=== PATIENT | male | born 1980 | race Two or more races ===

== ENCOUNTER → 2023-01-17 | Outpatient (CLI) | payer MEDICAID | END | disposition home or self-care (01) | LOC: LAB 09:47 | PROVIDERS: ATTEND Podiatrist | DX: E11.621 Type 2 diabetes mellitus with foot ulcer (principal) | CPT/HCPCS: 36415; 82040; 83036 ==

== ENCOUNTER 2023-06-26 07:47 | Inpatient (IN) | payer OTHER, MEDICAID ==
[~2023-06-26] VITALS: Ht 198.1 cm; Wt 134.4 kg
[2023-06-26 08:29] LABS: Basophils # (auto) 0.1 10 ^3/uL (0-0.2); Basophils % (auto) 1.3 % (0.0-2.0); Eosinophils # (auto) 0.2 10 ^3/uL (0-0.8); Eosinophils % (auto) 2.7 % (0.0-7.0); Hematocrit 48.8 % (41.0-53.0); Hemoglobin 16.3 g/dL (13.5-17.5); Mean Corpuscular Hemoglobin 29.6 pg (28.0-32.0); Mean Corpuscular Hgb Conc. 33.4 g/dL (32.0-36.0); Mean Corpuscular Volume 88.4 fL (80.0-100.0); Monocytes # (auto) 0.5 10 ^3/uL (0-1.3); Monocytes % (auto) 7.1 % (0.0-12.0); Neutrophils # (auto) 4.8 10 ^3/uL (1.6-8.6); Neutrophils % (auto) 62.9 % (37.0-80.0); Nucleated Red Blood Cells % 0.2 %; Red Blood Cells 5.52 10^6/uL (4.5-5.90); Red Cell Distribution Width 13.1 % (11.8-14.3); White Blood Cell 7.6 10^3/uL (4.4-10.8)
[2023-06-26 08:47] LABS: Alanine Aminotransferase 67 U/L (7-40); Albumin 4.3 g/dL (3.2-4.8); Alkaline Phosphatase 84 U/L (46-116); Anion Gap 6 (5-15); Aspartate Aminotransferase 38 U/L (13-40); Blood Urea Nitrogen 8 mg/dL (9-23); Calcium 9.1 mg/dL (8.5-10.1); Carbon Dioxide 25 mmol/L (20-30); Chloride 105 mmol/L (98-107); Glucose 305 mg/dL (74-106); Potassium 4.2 mmol/L (3.5-5.1); Sodium 136 mmol/L (136-145)
[2023-06-26 08:48] LABS: Bilirubin, Total 0.6 mg/dL (0.2-1.0)
[2023-06-26] MEDS ORDERED: PIPERACILLIN-TAZO 4.5GM 100 ML IV ONE (09:00)
[2023-06-26] MEDS ORDERED: SODIUM CHLORIDE 0.9% 1,000 ML IV ONE (09:00)
[2023-06-26] MEDS ORDERED: VANCOMYCIN 1GM/250ML 250 ML IV ONE (09:00)
[2023-06-26] MEDS ORDERED: HYDROcodone-ACET 10/325MG TAB PO ONE (09:15)
[2023-06-26 10:05] LABS: INR 0.99 (0.9-1.15); Prothrombin Time 10.4 sec (9.3-11.8)
[2023-06-26] MEDS ORDERED: InsuLIN REG 1unit/0.01ml Soln (100units/ml) IV ONE (10:15)
[2023-06-26] MEDS ORDERED: DOCUSATE SOD 100 MG CAP PO PRN (12:30)
[2023-06-26] MEDS ORDERED: DEXTROSE (50%) 50ML SYRG IV PRN (12:30)
[2023-06-26] MEDS ORDERED: VANCOMYCIN PER PHARMACY 0 MG IV SCH (12:30)
[2023-06-26] MEDS ORDERED: ONDANSETRON HCL 4 MG/2 ML VIAL IV PRN (12:30)
[2023-06-26] MEDS: SODIUM CHLORIDE 0.9% 1,000 ML IV SCH (13:47)
[2023-06-26 16:15] LABS: Base Excess 0.4 mmol/L (-2.0-2.0)
[2023-06-26] MEDS: InsuLIN REG 1unit/0.01ml Soln (100units/ml) SC SCH ×2 (17:00→22:58)
[2023-06-26] MEDS ORDERED: PIPERACILLIN-TAZOB 3.375GM 100 ML IV SCH (18:00)
[2023-06-26] MEDS: ACCU-CHEK COMFORT CURVE STRIP VI SCH ×2 (19:27→23:01)
[2023-06-26] MEDS: VANCOMYCIN 1GM/250ML 250 ML IV SCH ×2 (19:28→23:02)
[2023-06-26 19:30] VITALS: PULSE 80; O2SAT 96
[2023-06-26 20:05] VITALS: PULSE 80; O2SAT 96
[2023-06-26] MEDS ORDERED: LORazepam 2MG/ML-1ML VIAL IV PRN ×2 (21:00)
[2023-06-26] MEDS ORDERED: LIDOCAINE 1% (LOCAL ANESTH.) PF 5ml SDV ID ONE (21:15)
[2023-06-26 21:57] LABS: Folate (Folic Acid) > 24.00 ng/mL (>5.38)
[2023-06-26] MEDS ORDERED: IBUP-1455 PO (22:00)
[2023-06-26] MEDS ORDERED: DAKI0.12 TOP (22:00)
[2023-06-26 22:01] VITALS: PULSE 96; RESP 18; O2SAT 95
[2023-06-26 22:02] VITALS: BP 168/111; PULSE 96; RESP 18; TEMP 98.2; O2SAT 95
[2023-06-26] MEDS: MORPHINE SULFATE INJ 2 MG/ml SYRG IV PRN (23:00)
[2023-06-26] MEDS: SODIUM CHLOR 0.9% PF (SALINE LOCK) 10ML VIAL/SYR IV SCH (23:01)
[2023-06-27] MEDS: PIPERACILLIN-TAZOB 3.375GM 100 ML IV SCH ×4 (03:18→22:11)
[2023-06-27] MEDS: SODIUM CHLORIDE 0.9% 1,000 ML IV SCH ×3 (05:10→21:50)
[2023-06-27] MEDS: VANCOMYCIN 1GM/250ML 250 ML IV SCH ×3 (05:21→18:09)
[2023-06-27 05:35] LABS: Basophils # (auto) 0.1 10 ^3/uL (0-0.2); Basophils % (auto) 1.1 % (0.0-2.0); Eosinophils # (auto) 0.2 10 ^3/uL (0-0.8); Hematocrit 44.4 % (41.0-53.0); Lymphocytes # (auto) 1.2 10 ^3/uL (0.4-5.4); Lymphocytes % (auto) 19.7 % (10.0-50.0); Mean Corpuscular Hemoglobin 29.9 pg (28.0-32.0); Mean Corpuscular Hgb Conc. 33.8 g/dL (32.0-36.0); Mean Corpuscular Volume 88.6 fL (80.0-100.0); Monocytes # (auto) 0.4 10 ^3/uL (0-1.3); Monocytes % (auto) 6.8 % (0.0-12.0); Neutrophils # (auto) 4.4 10 ^3/uL (1.6-8.6); Neutrophils % (auto) 69.4 % (37.0-80.0); Red Blood Cells 5.01 10^6/uL (4.5-5.90); White Blood Cell 6.3 10^3/uL (4.4-10.8)
[2023-06-27 05:53] LABS: Alanine Aminotransferase 56 U/L (7-40); Albumin 3.6 g/dL (3.2-4.8); Alkaline Phosphatase 70 U/L (46-116); Anion Gap 6 (5-15); Aspartate Aminotransferase 45 U/L (13-40); BUN/Creatinine Ratio 7.7 (10.0-20.0); Blood Urea Nitrogen 6 mg/dL (9-23); Calcium 8.6 mg/dL (8.5-10.1); Carbon Dioxide 24 mmol/L (20-30); Chloride 106 mmol/L (98-107); Cholesterol 104 mg/dL (< 200); Glucose 223 mg/dL (74-106); Potassium 3.7 mmol/L (3.5-5.1); Sodium 136 mmol/L (136-145); Triglycerides 74 mg/dL (< 150)
[2023-06-27 05:54] LABS: LDL Cholesterol 69 mg/dL (< 100)
[2023-06-27 05:55] LABS: Bilirubin, Total 0.8 mg/dL (0.2-1.0); HDL Cholesterol 24 mg/dL (40-59); Total Protein 6.8 g/dL (5.7-8.2)
[2023-06-27] MEDS: InsuLIN REG 1unit/0.01ml Soln (100units/ml) SC SCH ×4 (06:29→21:56)
[2023-06-27] MEDS: ACCU-CHEK COMFORT CURVE STRIP VI SCH ×4 (06:30→21:52)
[2023-06-27 08:00] VITALS: PULSE 89; RESP 19; O2SAT 95
[2023-06-27 08:30] VITALS: BP 137/95; PULSE 89; RESP 19; TEMP 98.3; O2SAT 95
[2023-06-27] MEDS: LOSARTAN POTASSIUM 50 MG TAB PO SCH (08:56)
[2023-06-27] MEDS: DULoxetine HCL 30 MG CAP PO SCH (08:56)
[2023-06-27] MEDS: SODIUM CHLOR 0.9% PF (SALINE LOCK) 10ML VIAL/SYR IV SCH ×2 (08:57→21:58)
[2023-06-27 16:41] VITALS: BP 156/80; PULSE 99; RESP 19; TEMP 98.3; O2SAT 93
[2023-06-27] MEDS: MORPHINE SULFATE INJ 2 MG/ml SYRG IV PRN (18:56)
[2023-06-27 20:00] VITALS: RESP 18
[2023-06-27 21:57] VITALS: BP 132/86; PULSE 94; RESP 17; TEMP 98.4; O2SAT 94
[2023-06-28] MEDS: VANCOMYCIN 1GM/250ML 250 ML IV SCH ×3 (00:10→11:47)
[2023-06-28] MEDS: PIPERACILLIN-TAZOB 3.375GM 100 ML IV SCH ×2 (04:18→08:41)
[2023-06-28 05:00] VITALS: BP 121/87; PULSE 92; RESP 20; TEMP 98.1; O2SAT 93
[2023-06-28] MEDS: SODIUM CHLORIDE 0.9% 1,000 ML IV SCH (06:10)
[2023-06-28] MEDS: ACCU-CHEK COMFORT CURVE STRIP VI SCH ×2 (06:23→11:29)
[2023-06-28] MEDS: InsuLIN REG 1unit/0.01ml Soln (100units/ml) SC SCH ×2 (06:25→11:33)
[2023-06-28 07:30] VITALS: BP 137/95; TEMP 36.7
[2023-06-28 08:00] VITALS: BP 125/91; PULSE 91; RESP 18; TEMP 97.5; O2SAT 94
[2023-06-28] MEDS: SODIUM CHLOR 0.9% PF (SALINE LOCK) 10ML VIAL/SYR IV SCH (08:53)
[2023-06-28] MEDS: DULoxetine HCL 30 MG CAP PO SCH (08:55)
[2023-06-28] MEDS: LOSARTAN POTASSIUM 50 MG TAB PO SCH (08:56)
[2023-06-28] MEDS ORDERED: DAKINS QUARTER STR 0.125% (NaHypochlorite) 473 ML TOPICAL SOL TOP SCH (10:00)
[2023-06-28 12:55] VITALS: BP 127/93; PULSE 87; RESP 18; TEMP 98.2; O2SAT 93
== END 2023-06-28 15:08 | disposition left against medical advice (07) | DRG 638 ==
LOC: ER 07:47 → OVERFLOW 12:41 → WEST WING 22:08
PROVIDERS: ADMIT Nurse Practitioner Family; ATTEND Family Medicine
PROC: 02HV33Z Insertion of Infusion Device into Superior Vena Cava, Percutaneous Approach (ICD-10-PCS; principal; 2023-06-26)
PROC: B548ZZA Ultrasonography of Superior Vena Cava, Guidance (ICD-10-PCS; 2023-06-26)
DX: E11.69 Type 2 diabetes mellitus with other specified complication (principal); M86.172 Other acute osteomyelitis, left ankle and foot; E11.621 Type 2 diabetes mellitus with foot ulcer; E11.21 Type 2 diabetes mellitus with diabetic nephropathy; E11.42 Type 2 diabetes mellitus with diabetic polyneuropathy; E78.00 Pure hypercholesterolemia, unspecified; G54.0 Brachial plexus disorders; I10 Essential (primary) hypertension; B95.2 Enterococcus as the cause of diseases classified elsewhere; L97.519 Non-pressure chronic ulcer of other part of right foot with unspecified severity; L03.032 Cellulitis of left toe; L97.529 Non-pressure chronic ulcer of other part of left foot with unspecified severity; R09.02 Hypoxemia; Z53.29 Procedure and treatment not carried out because of patient's decision for other reasons; Z91.148 Patient's other noncompliance with medication regimen for other reason; Z90.49 Acquired absence of other specified parts of digestive tract; E11.65 Type 2 diabetes mellitus with hyperglycemia; E66.9 Obesity, unspecified; Z68.34 Body mass index [BMI] 34.0-34.9, adult
CPT/HCPCS: 36415; 36569; 36600; 70551; 71045; 73700; 80053; 80061; 80202; 82010; 82607; 82746; 82805; 82962; 83036; 83605; 84443; 85025; 85610; 87040; 87077; 87186; 87205; 93926; 93971; G0378; J1815; J2543

== ENCOUNTER → 2023-07-03 | Outpatient (CLI) | payer OTHER, MEDICAID ==
[~2023-07-03] MED LIST: DAKI0.12 TOP; IBUP-1455 PO
[2023-07-03 09:54] LABS: Basophils # (auto) 0.1 10 ^3/uL (0-0.2); Basophils % (auto) 1.2 % (0.0-2.0); Eosinophils # (auto) 0.3 10 ^3/uL (0-0.8); Eosinophils % (auto) 4.7 % (0.0-7.0); Hemoglobin 15.2 g/dL (13.5-17.5); Lymphocytes # (auto) 1.7 10 ^3/uL (0.4-5.4); Mean Corpuscular Volume 87.9 fL (80.0-100.0); Monocytes # (auto) 0.5 10 ^3/uL (0-1.3); Monocytes % (auto) 8.2 % (0.0-12.0); Neutrophils # (auto) 3.5 10 ^3/uL (1.6-8.6); Neutrophils % (auto) 57.9 % (37.0-80.0); Red Blood Cells 5.23 10^6/uL (4.5-5.90)
[2023-07-03 10:09] LABS: INR 1.01 (0.9-1.15); Partial Thromboplastin Time 29.3 SEC (24.5-34.5); Prothrombin Time 10.6 sec (9.3-11.8)
== END | disposition home or self-care (01) ==
LOC: LAB 09:43
PROVIDERS: ATTEND Podiatrist
DX: E11.621 Type 2 diabetes mellitus with foot ulcer (principal); D68.9 Coagulation defect, unspecified
CPT/HCPCS: 36415; 85025; 85610; 85730

== ENCOUNTER → 2023-07-04 | Outpatient (CLI) | payer OTHER, MEDICAID ==
[~2023-07-04] MED LIST changes: +LIDOCAINE 1% (LOCAL ANESTH.) PF 5ml SDV ID ONE; +SODIUM CHLOR 0.9% PF (SALINE LOCK) 10ML VIAL/SYR IV SCH
== END | disposition home or self-care (01) ==
LOC: XYW 14:56
PROVIDERS: ATTEND Podiatrist
DX: S91.102A Unspecified open wound of left great toe without damage to nail, initial encounter (principal); X58.XXXA Exposure to other specified factors, initial encounter; Y93.89 Activity, other specified; Y92.89 Other specified places as the place of occurrence of the external cause; Y99.8 Other external cause status
CPT/HCPCS: 36569; 71045; C1751; J7050

== ENCOUNTER 2024-05-19 14:28 | Inpatient (IN) | payer OTHER, MEDICAID ==
[~2024-05-19] VITALS: Ht 198.1 cm; Wt 123.5 kg
[~2024-05-19 14:28] MED LIST changes: -LIDOCAINE 1% (LOCAL ANESTH.) PF 5ml SDV ID ONE; -SODIUM CHLOR 0.9% PF (SALINE LOCK) 10ML VIAL/SYR IV SCH
[2024-05-19 15:27] LABS: Basophils # (auto) 0.1 10 ^3/uL (0-0.2); Basophils % (auto) 0.3 % (0.0-2.0); Eosinophils # (auto) 0 10 ^3/uL (0-0.8); Hematocrit 47.4 % (41.0-53.0); Hemoglobin 16.4 g/dL (13.5-17.5); Lymphocytes # (auto) 1.1 10 ^3/uL (0.4-5.4); Lymphocytes % (auto) 6.4 % (10.0-50.0); Mean Corpuscular Hemoglobin 31.2 pg (28.0-32.0); Mean Corpuscular Hgb Conc. 34.6 g/dL (32.0-36.0); Mean Corpuscular Volume 90.3 fL (80.0-100.0); Monocytes # (auto) 1.1 10 ^3/uL (0-1.3); Monocytes % (auto) 6.4 % (0.0-12.0); Neutrophils # (auto) 15.5 10 ^3/uL (1.6-8.6); Neutrophils % (auto) 86.9 % (37.0-80.0); Platelet Count (auto) 368 10^3/uL (140-450); Red Blood Cells 5.25 10^6/uL (4.5-5.90); Red Cell Distribution Width 13.1 % (11.8-14.3); White Blood Cell 17.8 10^3/uL (4.4-10.8)
[2024-05-19 15:48] LABS: Lactic Acid w/Reflex 3.3 mmol/L (0.4-2.0)
[2024-05-19 16:03] LABS: Alanine Aminotransferase 14 U/L (7-40); Alkaline Phosphatase 89 U/L (46-116); Anion Gap 12 (5-15); Aspartate Aminotransferase 18 U/L (13-40); BUN/Creatinine Ratio 7.5 (10.0-20.0); Blood Urea Nitrogen 8 mg/dL (9-23); Calcium 10.4 mg/dL (8.7-10.4); Carbon Dioxide 19 mmol/L (20-31); Chloride 102 mmol/L (98-107); Glucose 186 mg/dL (74-106); Potassium 3.6 mmol/L (3.5-5.1); Sodium 133 mmol/L (136-145)
[2024-05-19 16:04] LABS: Albumin 4.9 g/dL (3.2-4.8); Bilirubin, Total 1.4 mg/dL (0.2-1.0); Total Protein 9.4 g/dL (5.7-8.2)
[2024-05-19] MEDS: SODIUM CHLORIDE 0.9% 2,750 ML IV ONE (16:15)
[2024-05-19] MEDS ORDERED: VANCOMYCIN PER PHARMACY 0 MG IV SCH (17:00)
[2024-05-19] MEDS: LACTATED RINGER'S 2,750 ML IV ONE (20:44)
[2024-05-19] MEDS: ONDANSETRON HCL 4 MG/2 ML VIAL IV ONE (20:53)
[2024-05-19] MEDS: MORPHINE SULFATE 4 MG/ML SYR/VIAL IV ONE (20:54)
[2024-05-19] MEDS: VANCOMYCIN 1GM/200ML 200 ML IV SCH (21:01)
[2024-05-19] MEDS ORDERED: VANCOMYCIN 1.75GM/350ML 350 ML IV SCH (21:30)
[2024-05-19 22:00] VITALS: PULSE 128; RESP 20; O2SAT 98
[2024-05-19] MEDS ORDERED: VANCOMYCIN 1GM/200ML 200 ML IV SCH (22:00)
[2024-05-19] MEDS: VANCOMYCIN 1GM/200ML 200 ML IV ONE (22:14)
[2024-05-19] MEDS ORDERED: DEXTROSE (50%) 50ML SYRG IV PRN (22:30)
[2024-05-19] MEDS: PIPERACILLIN-TAZO 4.5GM 100 ML IV SCH (23:21)
[2024-05-20] VITALS (7 sets, daily range): BP systolic 124–149; BP diastolic 72–92; PULSE 104–126; RESP 13–20; TEMP 98.8–102.8; O2SAT 93–98
[2024-05-20] MEDS: ACCU-CHEK COMFORT CURVE STRIP VI SCH ×2 (00:27→06:00)
[2024-05-20 04:07] LABS: Anion Gap 5 (5-15); Carbon Dioxide 25 mmol/L (20-31); Chloride 104 mmol/L (98-107); Potassium 4.3 mmol/L (3.5-5.1); Sodium 134 mmol/L (136-145)
[2024-05-20 04:08] LABS: Calcium 9.2 mg/dL (8.7-10.4)
[2024-05-20 04:13] LABS: Blood Urea Nitrogen 9 mg/dL (9-23); Glucose 162 mg/dL (74-106)
[2024-05-20] MEDS ORDERED: DEXTROSE (50%) 50ML SYRG IV PRN (04:30)
[2024-05-20] MEDS: InsuLIN REG 1unit/0.01ml Soln (100units/ml) SC SCH ×2 (06:00)
[2024-05-20] MEDS: MORPHINE SULFATE INJ 2 MG/ml SYRG IV PRN (06:23)
[2024-05-20 08:41] LABS: Basophils # (auto) 0.1 10 ^3/uL (0-0.2); Basophils % (auto) 0.3 % (0.0-2.0); Eosinophils # (auto) 0 10 ^3/uL (0-0.8); Eosinophils % (auto) 0.1 % (0.0-7.0); Hematocrit 40.5 % (41.0-53.0); Hemoglobin 14.1 g/dL (13.5-17.5); Lymphocytes # (auto) 1.2 10 ^3/uL (0.4-5.4); Lymphocytes % (auto) 7.1 % (10.0-50.0); Mean Corpuscular Hemoglobin 31.7 pg (28.0-32.0); Mean Corpuscular Volume 90.6 fL (80.0-100.0); Monocytes # (auto) 1.6 10 ^3/uL (0-1.3); Neutrophils # (auto) 13.5 10 ^3/uL (1.6-8.6); Neutrophils % (auto) 82.5 % (37.0-80.0); Platelet Count (auto) 328 10^3/uL (140-450); Red Blood Cells 4.47 10^6/uL (4.5-5.90); Red Cell Distribution Width 13.2 % (11.8-14.3); White Blood Cell 16.4 10^3/uL (4.4-10.8)
[2024-05-20] MEDS: CEFEPIME 1GM/ 50ML 50 ML IV ONE (08:54)
[2024-05-20 09:35] LABS: Erythrocyte Sedimentation Rate 49 mm/hr (0-20)
[2024-05-20 09:45] LABS: INR 1.21 (0.9-1.15); Partial Thromboplastin Time 29.5 SEC (24.5-34.5); Prothrombin Time 12.6 sec (9.3-11.8)
[2024-05-20] MEDS: VANCOMYCIN 1.75GM/350ML 350 ML IV SCH (10:40)
[2024-05-20] MEDS: SODIUM CHLORIDE 0.9% 1,000 ML IV SCH (10:53)
[2024-05-20] MEDS: INSULIN LANTUS (GLARGINE) 1 /0.01ml (100units/ml) SC SCH (11:06)
[2024-05-20] MEDS ORDERED: KETAMINE 50mg/ML 1ml syringe ONE (11:48)
[2024-05-20] MEDS ORDERED: fentaNYL CITRATE 100 MCG/2 ML VL ONE (11:48)
[2024-05-20] MEDS ORDERED: SODIUM CHLORIDE LOCK 10 ML ONE (11:49)
[2024-05-20] MEDS ORDERED: PROPOFOL 10 MG/ML 20 ML IV ONE (11:49)
[2024-05-20] MEDS ORDERED: ONDANSETRON HCL 4 MG/2 ML VIAL ONE (11:49)
[2024-05-20] MEDS ORDERED: MIDAZOLAM HCL 2MG/2ML 2ml VIAL (1mg/ml) ONE ×2 (11:49→12:48)
[2024-05-20] MEDS ORDERED: LIDOCAINE 1% INJ PF 5ML AMP ONE (11:49)
[2024-05-20] MEDS ORDERED: MORPHINE SULFATE INJ 2 MG/ml SYRG IV PRN (12:15)
[2024-05-20] MEDS ORDERED: HYDROmorphone HCL 2 MG/ML VL/or syr IV PRN ×2 (12:15)
[2024-05-20] MEDS: BUPIVACAINE 0.5% MPF INJ 30ML SDV IJ ONE (12:39)
[2024-05-20] MEDS: LABETALOL HCL 20 MG/4 ML VL IV ONE (15:20)
[2024-05-20] MEDS ORDERED: LABETALOL HCL 20 MG/4 ML VL IV ONE (15:21)
[2024-05-20] MEDS: KETOROLAC TROMETH 30 MG/ML 1ML VIAL IV ONE (16:33)
[2024-05-20] MEDS: METOCLOPRAMIDE HCL 5MG/ml INJ 2ml VIAL IV ONE (16:33)
[2024-05-20] MEDS: CEFEPIME 1GM/ 50ML 50 ML IV SCH (18:17)
[2024-05-21 01:00] VITALS: BP 106/59; PULSE 105; RESP 19; TEMP 99.5; O2SAT 96
[2024-05-21 05:00] VITALS: BP 118/75; PULSE 100; RESP 19; TEMP 98.9; O2SAT 97
[2024-05-21 06:51] LABS: Urine Bacteria FEW /hpf (None Seen); Urine Blood Negative /uL (Negative); Urine Clarity Clear (Clear); Urine Color Yellow (Yellow); Urine Mucus FEW (None Seen); Urine Protein, UAD TRACE (Negative); Urine Specific Gravity 1.029 (1.001-1.035); Urine Urobilinogen 4 mg/dL (Negative); Urine WBC 1 /hpf (0 - 3); Urine pH 5.5 (5.0-9.0)
[2024-05-21 06:55] LABS: Amphetamine Screen, Urine Neg (NEGATIVE); Barbiturate Scree,Urine Neg (NEGATIVE); Benzodiazephine Screen, Urine Pos (NEGATIVE); Cocaine Screen, Urine Neg (NEGATIVE)
[2024-05-21 06:56] LABS: Cannabinoid Screen, Urine Pos (NEGATIVE); Opiate Scree,Urine Neg (NEGATIVE); Phencyclidine Screen, Urine Neg (NEGATIVE)
[2024-05-21 08:00] VITALS: PULSE 88; RESP 17; O2SAT 96
[2024-05-21 08:44] VITALS: BP 122/86; PULSE 88; RESP 17; TEMP 98.2; O2SAT 96
[2024-05-21 08:53] LABS: Basophils # (auto) 0.1 10 ^3/uL (0-0.2); Basophils % (auto) 0.4 % (0.0-2.0); Eosinophils # (auto) 0.1 10 ^3/uL (0-0.8); Eosinophils % (auto) 0.5 % (0.0-7.0); Hemoglobin 13.6 g/dL (13.5-17.5); Lymphocytes % (auto) 6.8 % (10.0-50.0); Mean Corpuscular Hemoglobin 31.5 pg (28.0-32.0); Mean Corpuscular Hgb Conc. 34.9 g/dL (32.0-36.0); Mean Corpuscular Volume 90.4 fL (80.0-100.0); Monocytes # (auto) 1.3 10 ^3/uL (0-1.3); Monocytes % (auto) 8.7 % (0.0-12.0); Neutrophils # (auto) 12.2 10 ^3/uL (1.6-8.6); Neutrophils % (auto) 83.6 % (37.0-80.0); Platelet Count (auto) 292 10^3/uL (140-450); Red Blood Cells 4.32 10^6/uL (4.5-5.90); Red Cell Distribution Width 13.1 % (11.8-14.3); White Blood Cell 14.6 10^3/uL (4.4-10.8)
[2024-05-21 08:54] LABS: Anion Gap 5 (5-15); Carbon Dioxide 24 mmol/L (20-31); Chloride 106 mmol/L (98-107); Potassium 3.7 mmol/L (3.5-5.1); Sodium 135 mmol/L (136-145)
[2024-05-21 08:56] LABS: Calcium 9.3 mg/dL (8.7-10.4)
[2024-05-21 09:00] LABS: BUN/Creatinine Ratio 11.5 (10.0-20.0); Blood Urea Nitrogen 9 mg/dL (9-23); Glucose 112 mg/dL (74-106)
[2024-05-21 13:00] VITALS: BP 123/83; PULSE 95; RESP 18; TEMP 98.1; O2SAT 98
== END 2024-05-21 17:00 | disposition left against medical advice (07) | DRG 872 ==
LOC: ER 14:38 → OVERFLOW 22:35 → WEST WING 05-20 15:54
PROVIDERS: ADMIT Internal Medicine; ATTEND Internal Medicine
PROC: 0Y9N0ZX Drainage of Left Foot, Open Approach, Diagnostic (ICD-10-PCS; principal; 2024-05-20 12:30)
DX: A41.9 Sepsis, unspecified organism (principal); L02.612 Cutaneous abscess of left foot; L03.116 Cellulitis of left lower limb; M86.8X7 Other osteomyelitis, ankle and foot; I10 Essential (primary) hypertension; F20.9 Schizophrenia, unspecified; E11.621 Type 2 diabetes mellitus with foot ulcer; F31.9 Bipolar disorder, unspecified; F17.210 Nicotine dependence, cigarettes, uncomplicated; Z53.29 Procedure and treatment not carried out because of patient's decision for other reasons; E11.69 Type 2 diabetes mellitus with other specified complication; Z90.49 Acquired absence of other specified parts of digestive tract; Z91.148 Patient's other noncompliance with medication regimen for other reason
CPT/HCPCS: 36415; 73700; 73718; 80048; 80053; 80202; 80307; 81001; 82306; 82607; 82962; 83036; 83605; 84443; 85025; 85610; 85652; 85730; 86141; 87040; 87070; 87075; 87076; 87081; 87205; 96365; 96375; G0378; J1815; J2250; J2405; J2543; J2704; J3490

== ENCOUNTER 2024-11-09 15:33 | Inpatient (IN) | payer OTHER, MEDICAID ==
[~2024-11-09] VITALS: Ht 198.1 cm; Wt 113.6 kg
--- NOTE | 2024-11-09 15:53 | ED.PDOC ---
Musculoskeletal HPI Comments 44-year-old male with past medical history pertinent for DM, bipolar, schizophrenia, presents to ED for left foot pain that has been ongoing for four days, associated with fever. Patient states that he has a diabetic foot wound and was advised by his funeral pre arrangement specialist Dr. Neri to come to the Ed to get admitted for surgery. Currently rates his pain as 10/10 in severity. He denies taking any medications for pain. No alleviating or aggravating factors. Chief Complaint: Wound Check Time Seen by MD: 15:36 Primary Care Provider: KNAPP Reviewed Notes: Nurses Notes, Medications, Allergies Allergies: Coded Allergies: NO KNOWN ALLERGIES (Unverified , 06/26/23) Home Meds Reported Medications Sodium Hypochlorite (Dakins Solution Quarter S) 0.125 % Xiomara, TOP BID 06/26/23 Ibuprofen Micronized (Ibuprofen) 800 Mg Tab, 1 TAB PO TID 06/26/23 Past Medical History PAST MEDICAL HISTORY: DM Surgical History: Cholecystectomy Family History Family History: Reviewed,noncontributory to illness Social History Smoker: Non-Smoker Alcohol: Denies ETOH Use Drugs: Denies Drug Use Lives In: Home Constitutional: reports: fever; denies: chills, diaphoresis, fatigue, malaise, sweats, weakness, others EENTM: denies: blurred vision, double vision, ear bleeding, ear discharge, ear drainage, ear pain, ear ringing, eye pain, eye redness, hearing loss, mouth pain, mouth swelling, nasal discharge, nose bleeding, nose congestion, nose pain, photophobia, tearing, throat pain, throat swelling, voice changes, others Respiratory: denies: cough, hemoptysis, orthopnea, SOB at rest, shortness of breath, SOB with excertion, stridor, wheezing, others Cardiovascular: denies: chest pain, dizzy spells, diaphoresis, Dyspnea on exertion, edema, irregular heart beat, left arm pain, lightheadedness, palpitations, PND, syncope, others Gastrointestinal: denies: abdomen distended, abdominal pain, blood streaked bowels, constipated, diarrhea, dysphagia, difficulty swallowing, hematemesis, melena, nausea, poor appetite, poor fluid intake, rectal bleeding, rectal pain, vomiting, others Genitourinary: denies: burning, dysuria, flank pain, frequency, hematuria, incontinence, penile discharge, penile sore, pain, testicle pain, testicle swelling, urgency, others Neurological: denies: dizziness, fainting, headache, left sided numbness, left sided weakness, numbness, paresthesia, pre-existing deficit, right sided numbness, right sided weakness, seizure, speech problems, tingling, tremors, weakness, others Musculoskeletal: reports: joint pain; denies: back pain, gout, joint swelling, muscle pain, muscle stiffness, neck pain, others Integumetry: denies: bruises, change in color, change in hair/nails, dryness, laceration, lesions, lumps, rash, wounds, others Allergic/Immunocompromised: denies: Difficulty Healing, Frequent Infections, Hives, Itching, others Hematologic/Lymphatic: denies: anemia, blood clots, easy bleeding, easy bruising, swollen glands, others Endocrine: denies: excessive hunger, excessive sweating, excessive thirst, excessive urination, flushing, intolerance to cold, intolerance to heat, unexplained weight gain, unexplained weight loss, others Psychiatric: denies: anxiety, bipolar disorder, depression, hopeless, panic disorder, schizophrenia, sleepless, suicidal, others All Other Systems: Reviewed and Negative Physical Exam General Appearance: Moderate Distress (Patient arrives in wheelchair, moderate distress due to pain.), Normal HEENT: Normal ENT Inspection, Pharynx Normal, TMs Normal Neck: Full Range of Motion, Non-Tender, Normal, Normal Inspection Respiratory: Chest Non-Tender, Lungs Clear, No Accessory Muscle Use, No Respiratory Distress, Normal Breath Sounds Cardiovascular: No Edema, No JVD, No Murmur, No Gallop, Normal Peripheral Pulses, Regular Rate/Rhythm Breast Exam: Deferred Gastrointestinal: No Organomegaly, Non Tender, No Pulsatile Mass, Normal Bowel Sounds, Soft Genitalia: Deferred Pelvic: Deferred Rectal: Deferred Extremities: No calf tenderness, Normal capillary refill, Normal range of motion, Tender (Left foot is wrapped and gauze. Tenderness to palpation to the entire foot. Tender to palpation to the ankle) Musculoskeletal : Apperance: Normal Neurologic: Alert, system validation engineer II-XII nml as Tested, No Motor Deficits, Normal Affect, Normal Mood, No Sensory Deficits Cerebellar Function: Normal Reflexes: Normal Skin: Dry, Normal Color, Warm Lymphatic: No Adenopathy Was a procedure done? Was a procedure done?: No Differential Diagnosis EXT Differential Diagnosis: Cellulitis, Fracture, Sprain, Neurovascular injury Other Differential Diagnosis Osteomyelitis, diabetic foot ulcer X-Ray, Labs, Meds, VS Vital Signs Date Time Temp Pulse Resp B/P (MAP) Pulse Ox O2 Delivery O2 Flow Rate FiO2 11/09/24 19:02 16 99 Room Air 11/09/24 19:00 98.0 93 16 109/68 (82) 99 98.0 11/09/24 18:21 96 17 114/69 (84) 100 11/09/24 18:20 96 17 114/69 11/09/24 17:43 119 18 112/75 11/09/24 17:33 99.8 119 18 112/75 (87) 97 99.8 11/09/24 17:28 99.8 11/09/24 16:38 18 98 Room Air* 0 21 11/09/24 16:34 100.1 11/09/24 16:22 126 17 96 Room Air 11/09/24 16:22 100.1 126 17 121/82 (95) 96 100.1 11/09/24 15:45 100.0 90 25 133/81 (98) 97 100.0 Lab Test 11/09/24 18:05 11/09/24 16:09 11/09/24 15:45 Range/Units Lactic Acid Level 1.3 2.5 *H 0.4-2.0 mmol/L White Blood Count 17.7 H 4.4-10.8 10^3/uL Red Blood Count 5.30 4.5-5.90 10^6/uL Hemoglobin 16.1 13.5-17.5 g/dL Hematocrit 48.4 41.0-53.0 % Mean Corpuscular Volume 91.4 80.0-100.0 fL Mean Corpuscular Hemoglobin 30.4 28.0-32.0 pg Mean Corpuscular Hemoglobin Concent 33.3 32.0-36.0 g/dL Red Cell Distribution Width 13.3 11.8-14.3 % Platelet Count 333 140-450 10^3/uL Mean Platelet Volume 7.6 6.9-10.8 fL Neutrophils (%) (Auto) 86.8 H 37.0-80.0 % Lymphocytes (%) (Auto) 6.7 L 10.0-50.0 % Monocytes (%) (Auto) 6.2 0.0-12.0 % Eosinophils (%) (Auto) 0.1 0.0-7.0 % Basophils (%) (Auto) 0.2 0.0-2.0 % Neutrophils # (Auto) 15.3 H 1.6-8.6 10 ^3/uL Lymphocytes # (Auto) 1.2 0.4-5.4 10 ^3/uL Monocytes # (Auto) 1.1 0-1.3 10 ^3/uL Eosinophils # (Auto) 0 0-0.8 10 ^3/uL Basophils # (Auto) 0 0-0.2 10 ^3/uL Nucleated Red Blood Cells 0.0 % Erythrocyte Sedimentation Rate 35 H 0-20 mm/hr Sodium Level 135 L 136-145 mmol/L Potassium Level 4.2 3.5-5.1 mmol/L Chloride Level 105 98-107 mmol/L Carbon Dioxide Level 16 L 20-31 mmol/L Anion Gap 14 5-15 Blood Urea Nitrogen 13 9-23 mg/dL Creatinine 1.14 0.700-1.30 mg/dL Glomerular Filtration Rate Calc 82 >90 mL/min BUN/Creatinine Ratio 11.4 10.0-20.0 Serum Glucose 128 H 74-106 mg/dL Calcium Level 10.3 8.7-10.4 mg/dL Total Bilirubin 1.4 H 0.2-1.0 mg/dL Aspartate Amino Transferase (AST) 30 13-40 U/L Alanine Aminotransferase (ALT) 19 7-40 U/L Alkaline Phosphatase 84 46-116 U/L C-Reactive Protein High Sensitivity 14.19 H <1.0 mg/dL Total Protein 8.4 H 5.7-8.2 g/dL Albumin 4.8 3.2-4.8 g/dL POC Glucose 142 H 70-106 mg/dl Current Medications Medications (Trade) Dose Ordered Sig/Quyen Route Start Time Stop Time Status Last Admin Ketorolac Tromethamine (Toradol Injection) 30 mg ONCE ONCE IV 11/09/24 15:45 11/09/24 15:46 DC 11/09/24 16:34 Acetaminophen (Tylenol Tablet) 650 mg ONCE ONCE PO 11/09/24 16:00 11/09/24 16:06 DC 11/09/24 16:34 Piperacillin Sod/ Tazobactam Sod 100 ml @ 100 mls/hr ONCE ONCE IV 11/09/24 16:45 11/09/24 17:44 DC 11/09/24 16:59 Sodium Chloride 2,750 ml @ 2,750 mls/hr ONCE ONCE IV 11/09/24 17:00 11/09/24 17:59 DC 11/09/24 17:29 Vancomycin HCl 250 ml @ 250 mls/hr Q1H IV 11/09/24 17:00 11/09/24 18:59 DC 11/09/24 18:37 Morphine Sulfate 4 mg ONCE ONCE IV 11/09/24 17:45 11/09/24 17:46 DC 11/09/24 17:43 Ondansetron HCl (Zofran) 4 mg ONCE ONCE IV 11/09/24 17:45 11/09/24 17:46 DC 11/09/24 17:42 X-Ray, Labs, Meds, VS Comment CT Left Foot Impression: Possible osteomyelitis of the 4th metatarsal head. Focal collections of air in the plantar soft tissues of the left foot indicative of an infectious etiology. MDM: Patient with history as above presented with left foot pain. History obtained from patient. Patient was nontoxic, stable, mildly febrile, in wheelchair, moderate distress. Exam as above. Labs reviewed. CBC showed leukocytosis of 17.7. CMP showed mild hyponatremia at 135. Lactic acid elevated at 2.5. Pending ESR and CRP.. Independently reviewed imaging. Left foot showed possible osteomyelitis of the 4th metatarsal head. There was also air in the plantar soft tissues, suggesting infection. Reviewed external records. All findings were discussed with the patient. Differential diagnosis considered. Overall presentation is consistent with sepsis due to diabetic foot wound/osteomyelitis. Low suspicion for acute fracture, dislocation, abscess. Patient was treated with Tylenol, Toradol with improvement in symptoms. Patient will be started on IV fluids and antibiotics for sepsis and osteomyelitis treatment. Podiatry consult has been placed. Patient will be admitted for further evaluation. Disposition: Admit This medical document was created using the [employer] system. Although this document has been carefully reviewed, there may still be some phonetic and typographical errors, which are due to imperfections of the software program, and do not reflect any compromise in the patient's medical care. Time of 1ST Reevaluation: 16:34 Reevaluation 1ST: Improved Patient Education/Counseling: Diagnosis, Treatment, Prognosis, Need For Follow Up Family Education/Counseling: No Family Present Departure 1 Departure Time of Disposition: 16:34 Impression: Primary Impression: Acute osteomyelitis of toe of left foot Additional Impressions: DM type 2 with diabetic foot ulcer Qualified Codes: E11.621 - Type 2 diabetes mellitus with foot ulcer; L97.509 - Non-pressure chronic ulcer of other part of unspecified foot with unspe cified severity Sepsis Qualified Codes: A41.9 - Sepsis, unspecified organism Disposition: 09 ADMITTED INPATIENT Condition: Fair Critical Care Note Critical Care Time?: No Stability Stability form required: No Heart Score Heart Score: Heart Score Response (Comments) Value History N/A 0 EKG N/A 0 Age N/A 0 Risk Factors N/A 0 Troponin N/A 0 Total 0 RACHANA LABOY [facility] Nov 09, 2024 15:53
[2024-11-09 16:25] LABS: Basophils # (auto) 0 10 ^3/uL (0-0.2); Basophils % (auto) 0.2 % (0.0-2.0); Eosinophils # (auto) 0 10 ^3/uL (0-0.8); Eosinophils % (auto) 0.1 % (0.0-7.0); Hematocrit 48.4 % (41.0-53.0); Hemoglobin 16.1 g/dL (13.5-17.5); Lymphocytes # (auto) 1.2 10 ^3/uL (0.4-5.4); Lymphocytes % (auto) 6.7 % (10.0-50.0); Mean Corpuscular Hemoglobin 30.4 pg (28.0-32.0); Mean Corpuscular Hgb Conc. 33.3 g/dL (32.0-36.0); Mean Corpuscular Volume 91.4 fL (80.0-100.0); Monocytes # (auto) 1.1 10 ^3/uL (0-1.3); Monocytes % (auto) 6.2 % (0.0-12.0); Neutrophils # (auto) 15.3 10 ^3/uL (1.6-8.6); Neutrophils % (auto) 86.8 % (37.0-80.0); Platelet Count (auto) 333 10^3/uL (140-450); Red Cell Distribution Width 13.3 % (11.8-14.3); White Blood Cell 17.7 10^3/uL (4.4-10.8)
--- NOTE | 2024-11-09 16:29 | DVH ---
EXAMINATION: CT CT L FOOT WO CONTRAST INDICATION: R/o osteomyelitis COMPARISON: MRI MRI L FOOT WO CONTRAST on DOS: 05/20/24, CT CT L FOOT WO CONTRAST on DOS: 05/19/24, CT CT L FOOT WO CONTRAST on DOS: 06/26/23 TECHNIQUE: CT of the left foot was performed without contrast. Volume transverse images were obtained reconstructed in multiple planes using bone and soft tissue algorithms. CONTRAST: None Radiation dose: Total exam DLP equals 238 M Gy per cm FINDINGS: There is focal osteopenia of the distal 4th metatarsal head with surrounding soft tissue swelling, ax ial images 45 through 48. Fracture not identified. Discrete cortical destructive changes not present . Findings suggestive of possible early osteomyelitis. MRI recommended for further assessment. There are small focal collections of air in the plantar surface of the mid foot, axial image 52, seri es 604 and sagittal image 64, series 602. Findings may be infectious in nature. A well-defined absce ss is not appreciated. Impression: Possible osteomyelitis of the 4th metatarsal head. Focal collections of air in the plantar soft tissues of the left foot indicative of an infectious kenny ology.
[2024-11-09] MEDS: KETOROLAC TROMETH 30 MG/ML 1ML VIAL IV ONE (16:34)
[2024-11-09] MEDS: ACETAMINOPHEN 325 MG TAB PO ONE (16:34)
[2024-11-09 16:38] VITALS: RESP 18; O2SAT 98
[2024-11-09 16:43] LABS: Alanine Aminotransferase 19 U/L (7-40); Albumin 4.8 g/dL (3.2-4.8); Alkaline Phosphatase 84 U/L (46-116); Anion Gap 14 (5-15); Aspartate Aminotransferase 30 U/L (13-40); BUN/Creatinine Ratio 11.4 (10.0-20.0); Blood Urea Nitrogen 13 mg/dL (9-23); Calcium 10.3 mg/dL (8.7-10.4); Chloride 105 mmol/L (98-107); Potassium 4.2 mmol/L (3.5-5.1)
[2024-11-09 16:45] LABS: Bilirubin, Total 1.4 mg/dL (0.2-1.0); Carbon Dioxide 16 mmol/L (20-31); Glucose 128 mg/dL (74-106); Sodium 135 mmol/L (136-145); Total Protein 8.4 g/dL (5.7-8.2)
[2024-11-09] MEDS ORDERED: VANCOMYCIN PER PHARMACY 0 MG IV SCH ×2 (16:45→19:45)
[2024-11-09 16:48] LABS: Lactic Acid w/Reflex 2.5 mmol/L (0.4-2.0)
[2024-11-09 16:55] LABS: CRP High Sensitivity 14.19 mg/dL (<1.0)
[2024-11-09] MEDS: PIPERACILLIN-TAZOB 3.375GM 100 ML IV ONE (16:59)
[2024-11-09 17:09] LABS: Erythrocyte Sedimentation Rate 35 mm/hr (0-20)
[2024-11-09] MEDS: SODIUM CHLORIDE 0.9% 2,750 ML IV ONE (17:29)
[2024-11-09] MEDS: MORPHINE SULFATE 4 MG/ML SYR/VIAL IV ONE ×2 (17:40→17:43)
[2024-11-09] MEDS: ONDANSETRON HCL 4 MG/2 ML VIAL IV ONE ×2 (17:40→17:42)
[2024-11-09] MEDS: VANCOMYCIN 1GM/250ML KIT 250 ML IV SCH (18:37)
[2024-11-09] MEDS ORDERED: ONDANSETRON HCL 4 MG/2 ML VIAL IV PRN (19:45)
[2024-11-09] MEDS ORDERED: DEXTROSE (50%) 50ML SYRG IV PRN (19:45)
[2024-11-09] MEDS ORDERED: ACETAMINOPHEN 325 MG TAB PO PRN (19:45)
--- NOTE | 2024-11-09 21:08 | DVHHP2 ---
History of Present Illness Reason for Visit: Left foot infection History of Present Illness 44-year-old male presents for evaluation of left foot infection. Patient reports being seen by his gas blender weekly. Today he was seen in noticed a wound to the plantar of his left foot becoming worse so he advised him to present for possible surgery tomorrow. Patient reports over the past three days he has noticed discharge from the wound his and pain to the left foot. Reports occasional chills. No other acute complaints reported. Past Medical History Hypertension diabetes mellitus Past Surgical History Cholecystectomy Family History Noncontributory Smoke: No ALCOHOL: none Drugs: None Lives: with Family Review of Systems Review of Systems Review of systems are currently negative otherwise addressed HPI. Allergies: Coded Allergies: NO KNOWN ALLERGIES (Unverified , 06/26/23) Medications Current Medications Medications Dose Ordered Sig/Quyen Route Start Time Stop Time Status Last Admin Dose Admin Piperacillin Sod/ Tazobactam Sod 100 ml @ 25 mls/hr Q6H IV 11/09/24 22:00 Vancomycin HCl 0 ml @ 0 mls/hr UD IV 11/09/24 19:45 Diagnostic Test (Pha) 1 strip Q6HR 11/10/24 00:00 Insulin Human Regular Q6HR SC 11/10/24 00:00 Dextrose 50 ml UD PRN IV 11/09/24 19:45 Acetaminophen/ Hydrocodone Bitart 1 tab Q4HP PRN PO 11/09/24 19:45 Ondansetron HCl 4 mg Q4HP PRN IV 11/09/24 19:45 Acetaminophen 650 mg Q6HP PRN PO 11/09/24 19:45 Exam Vital Signs Vital Signs Date Time Temp Pulse Resp B/P (MAP) Pulse Ox O2 Delivery O2 Flow Rate FiO2 11/09/24 20:11 98.3 94 18 108/64 (79) 96 98.3 11/09/24 19:02 Room Air 11/09/24 16:38 0 21 Exam Gen: 44-year-old male in mild distress. Skin: Warm, dry, normal color and texture, no rash. HEENT: Normocephalic atraumatic, mucous membranes moist and pink. Neck: Cervical and supraclavicular nodes normal without enlargement, trachea is midline, thyroid gland is normal without masses. Pulmonary: Clear to auscultation and percussion bilaterally. Cardiac: Regular rate and rhythm. No murmur Abdomen: Soft, nontender, nondistended, bowel sounds present all 4 quadrants, no guarding, no rigidity, no organomegaly. Extremities: No cyanosis, clubbing, left foot open wound plantar area Neuro: Cranial nerves II through XII grossly intact, normal affect and speech, no focal motor deficits. Labs/Xrays AGE / SEX: 44 / M ADM STATUS: REG ER SERVICE [id number] ORDERING PHYSICIAN: RACHANA LABOY PAC PROCEDURE(s): LFTCT - CT L FOOT WO CONTRAST REASON: R/o osteomyelitis ORDER NUMBER(s): [id number], ACCESSION NUMBER(s): [id number] EXAMINATION: CT CT L FOOT WO CONTRAST INDICATION: R/o osteomyelitis COMPARISON: MRI MRI L FOOT WO CONTRAST on DOS: 05/20/24, CT CT L FOOT WO CONTRAST on DOS: 05/19/24, CT CT L FOOT WO CONTRAST on DOS: 06/26/23 TECHNIQUE: CT of the left foot was performed without contrast. Volume transverse images were obtained reconstructed in multiple planes using bone and soft tissue algorithms. CONTRAST: None Radiation dose: Total exam DLP equals 238 M Gy per cm FINDINGS: There is focal osteopenia of the distal 4th metatarsal head with surrounding soft tissue swelling, axial images 45 through 48. Fracture not identified. Discrete cortical destructive changes not present. Findings suggestive of possible early osteomyelitis. MRI recommended for further assessment. There are small focal collections of air in the plantar surface of the mid foot, axial image 52, series 604 and sagittal image 64, series 602. Findings may be infectious in nature. A well-defined abscess is not appreciated. Impression: Possible osteomyelitis of the 4th metatarsal head. Focal collections of air in the plantar soft tissues of the left foot indicative of an infectious etiology. Labs Test 11/09/24 18:05 11/09/24 16:09 11/09/24 15:45 Range/Units Lactic Acid Level 1.3 0.4-2.0 mmol/L White Blood Count 17.7 H 4.4-10.8 10^3/uL Red Blood Count 5.30 4.5-5.90 10^6/uL Hemoglobin 16.1 13.5-17.5 g/dL Hematocrit 48.4 41.0-53.0 % Mean Corpuscular Volume 91.4 80.0-100.0 fL Mean Corpuscular Hemoglobin 30.4 28.0-32.0 pg Mean Corpuscular Hemoglobin Concent 33.3 32.0-36.0 g/dL Red Cell Distribution Width 13.3 11.8-14.3 % Platelet Count 333 140-450 10^3/uL Mean Platelet Volume 7.6 6.9-10.8 fL Neutrophils (%) (Auto) 86.8 H 37.0-80.0 % Lymphocytes (%) (Auto) 6.7 L 10.0-50.0 % Monocytes (%) (Auto) 6.2 0.0-12.0 % Eosinophils (%) (Auto) 0.1 0.0-7.0 % Basophils (%) (Auto) 0.2 0.0-2.0 % Neutrophils # (Auto) 15.3 H 1.6-8.6 10 ^3/uL Lymphocytes # (Auto) 1.2 0.4-5.4 10 ^3/uL Monocytes # (Auto) 1.1 0-1.3 10 ^3/uL Eosinophils # (Auto) 0 0-0.8 10 ^3/uL Basophils # (Auto) 0 0-0.2 10 ^3/uL Nucleated Red Blood Cells 0.0 % Erythrocyte Sedimentation Rate 35 H 0-20 mm/hr Sodium Level 135 L 136-145 mmol/L Potassium Level 4.2 3.5-5.1 mmol/L Chloride Level 105 98-107 mmol/L Carbon Dioxide Level 16 L 20-31 mmol/L Anion Gap 14 5-15 Blood Urea Nitrogen 13 9-23 mg/dL Creatinine 1.14 0.700-1.30 mg/dL Glomerular Filtration Rate Calc 82 >90 mL/min BUN/Creatinine Ratio 11.4 10.0-20.0 Serum Glucose 128 H 74-106 mg/dL Calcium Level 10.3 8.7-10.4 mg/dL Total Bilirubin 1.4 H 0.2-1.0 mg/dL Aspartate Amino Transferase (AST) 30 13-40 U/L Alanine Aminotransferase (ALT) 19 7-40 U/L Alkaline Phosphatase 84 46-116 U/L C-Reactive Protein High Sensitivity 14.19 H <1.0 mg/dL Total Protein 8.4 H 5.7-8.2 g/dL Albumin 4.8 3.2-4.8 g/dL POC Glucose 142 H 70-106 mg/dl Assessment/Plan Assessment/Plan Assessment Left foot osteomyelitis Sepsis Diabetes mellitus Plan Admit the patient to [facility] to the hospitalist Podiatry consultation Zosyn/vancomycin Pain management NPO after midnight Continue treatment per orders. Plan discussed with: Patient My Orders Orders - RONALDO MENG Procedure Category Date Status Time Consistent DIET 11/10/24 Transmitted Carb(Ccho)Diabetes Breakfast Basic Metabolic Panel LAB 11/10/24 Verified 04:00 Vancomycin Per PHA 11/09/24 In Process Pharmacy 19:45 Glucose Blood PHA 11/10/24 In Process (Accu-Chek Comfort 00:00 Insulin R (Human) PHA 11/10/24 In Process (Insulin R) 00:00 Dextrose 50% Syringe PHA 11/09/24 In Process 19:45 Admit ADMIT 11/09/24 Transmitted 19:38 Hydrocodone-Acet PHA 11/09/24 In Process 5/325mg Tab ([place] 19:45 Ondansetron Hcl PHA 11/09/24 In Process (Zofran) 19:45 Complete Blood Count LAB 11/10/24 Verified 04:00 Condition: Stable [place] 11/09/24 In Process 19:38 Acetaminophen Tablet PHA 11/09/24 In Process (Tylenol Tablet) 19:45 Bedrest With Bathroom [place] 11/09/24 In Process Privileg 19:38 Piperacillin-Tazob PHA 11/09/24 In Process 3.375gm (Zosyn 3.375g 22:00 Npo After Midnight ORDERS 11/09/24 Transmitted Date of Service: Nov 09, 2024 Billing Provider: RONALDO MENG Common Visit Codes: [id number] INP/OBS CARE (HIGH) RONALDO MENG Nov 09, 2024 21:08
[2024-11-09] MEDS: ACCU-CHEK COMFORT CURVE STRIP VI SCH (23:49)
[2024-11-09] MEDS: InsuLIN REG 1unit/0.01ml Soln (100units/ml) SC SCH (23:49)
[2024-11-10] MEDS: PIPERACILLIN-TAZOB 3.375GM 100 ML IV SCH (00:29)
[2024-11-10] MEDS: VANCOMYCIN 1GM/250ML KIT 250 ML IV SCH (03:50)
[2024-11-10 07:23] LABS: Basophils # (auto) 0 10 ^3/uL (0-0.2); Basophils % (auto) 0.2 % (0.0-2.0); Eosinophils # (auto) 0.1 10 ^3/uL (0-0.8); Eosinophils % (auto) 1.1 % (0.0-7.0); Hematocrit 40.6 % (41.0-53.0); Lymphocytes # (auto) 0.8 10 ^3/uL (0.4-5.4); Lymphocytes % (auto) 5.9 % (10.0-50.0); Mean Corpuscular Hemoglobin 31.2 pg (28.0-32.0); Mean Corpuscular Hgb Conc. 34.5 g/dL (32.0-36.0); Mean Corpuscular Volume 90.6 fL (80.0-100.0); Monocytes # (auto) 1.1 10 ^3/uL (0-1.3); Monocytes % (auto) 8.2 % (0.0-12.0); Neutrophils # (auto) 11.9 10 ^3/uL (1.6-8.6); Neutrophils % (auto) 84.6 % (37.0-80.0); Nucleated Red Blood Cells % 0.1 %; Platelet Count (auto) 281 10^3/uL (140-450); Red Blood Cells 4.48 10^6/uL (4.5-5.90); Red Cell Distribution Width 13.5 % (11.8-14.3)
[2024-11-10 07:56] LABS: Anion Gap 8 (5-15); Calcium 9.2 mg/dL (8.7-10.4); Carbon Dioxide 24 mmol/L (20-31); Chloride 103 mmol/L (98-107); Glucose 155 mg/dL (74-106); Sodium 135 mmol/L (136-145)
[2024-11-10 08:37] LABS: INR 1.09 (0.9-1.15); Partial Thromboplastin Time 32.2 SEC (24.5-34.5); Prothrombin Time 11.5 sec (9.3-11.8)
[2024-11-10 08:48] LABS: BUN/Creatinine Ratio 11.7 (10.0-20.0); Blood Urea Nitrogen 14 mg/dL (9-23)
[2024-11-10] MEDS ORDERED: MIDAZOLAM HCL 2MG/2ML 2ml VIAL (1mg/ml) ONE (09:57)
[2024-11-10] MEDS ORDERED: PROPOFOL 10 MG/ML 20 ML IV ONE (09:57)
[2024-11-10] MEDS ORDERED: DexAMETHasone SOD PHOS 10MG/1ML VIAL INJ ONE (09:57)
[2024-11-10] MEDS ORDERED: fentaNYL CITRATE 100 MCG/2 ML VL ONE (09:57)
--- NOTE | 2024-11-10 10:06 | DVHINCON2 ---
Date Seen: Nov 10, 2024 Reason for Consultation Left foot wound History of Present Illness 44-year-old male presents for evaluation of left foot infection. Patient reports being seen by his financial services agent weekly. Today he was seen in noticed a wound to the plantar of his left foot becoming worse so he advised him to pr esent for possible surgery tomorrow. Patient reports over the past three days he has noticed discharge from the wound his and pain to the left foot. Reports occasional chills. No other acute complaints reported. Past Medical History See H&P Past Surgical History See H&P Family History: Patient reports no known family medical history. Allergies: Coded Allergies: NO KNOWN ALLERGIES (Unverified , 06/26/23) Home Meds No Active Prescriptions or Reported Meds Current Medications Current Medications Medications (Trade) Dose Ordered Sig/Quyen Route PRN Reason Start Time Stop Time Status Last Admin Vancomycin HCl 0 ml @ 0 mls/hr UD IV 11/09/24 16:45 11/09/24 19:51 DC Vancomycin HCl 250 ml @ 250 mls/hr Q1H IV 11/09/24 17:00 11/09/24 18:59 DC 11/09/24 18:37 Piperacillin Sod/ Tazobactam Sod 100 ml @ 25 mls/hr Q6H IV 11/09/24 22:00 11/10/24 05:43 Vancomycin HCl 0 ml @ 0 mls/hr UD IV 11/09/24 19:45 Diagnostic Test (Pha) (Accu-Chek Comfort Curve T) 1 strip Q6HR 11/10/24 00:00 11/10/24 05:07 Insulin Human Regular (InsuLIN R) Q6HR SC 11/10/24 00:00 Dextrose 50 ml UD PRN IV Blood Sugar LESS THAN 60 11/09/24 19:45 Acetaminophen/ Hydrocodone Bitart (Jerome 5/325MG Tab) 1 tab Q4HP PRN PO MODERATE PAIN (4-6 PAIN SCALE) 11/09/24 19:45 Ondansetron HCl (Zofran) 4 mg Q4HP PRN IV NAUSEA / VOMITING 11/09/24 19:45 Acetaminophen (Tylenol Tablet) 650 mg Q6HP PRN PO PAIN SCALE 1-3 OR TEMP>100.4 11/09/24 19:45 Vancomycin HCl 250 ml @ 250 mls/hr Q1H IV 11/10/24 00:45 11/10/24 01:44 DC 11/10/24 03:50 Vital Signs Vital Signs Date Time Temp Pulse Resp B/P (MAP) Pulse Ox O2 Delivery O2 Flow Rate FiO2 11/10/24 06:36 97.9 89 15 123/83 (96) 89 97.9 11/09/24 19:02 Room Air 11/09/24 16:38 0 21 Physical Exam DERMATOLOGIC EXAM: - Skin is dry and cool to the touch dry bilaterally. - Nails 1-5 of the bilateral foot are thickened, discolored, dystrophic, and tender to palpate with subungual debris - Hair loss noted to bilateral feet Wound #1: Location: Left plantar foot Measurements: Length 1 cm cm x width 1 cm cm x depth 1 cm cm. Wound margins: Hyperkeratotic. Wound base: Full thickness. General Appearance: Fibrotic Probes to Bone: yes Purulent drainage: No Serous drainage: No Erythema: Periwound VASCULAR EXAM: - DP and PT pulses are palpable bilaterally. - [employer]N [employer]ER is brisk to all digits. - Feet are cool to touch compared to lower legs bilaterally. NEUROLOGIC EXAM: - Normal light touch sensation to the superficial peroneal, deep peroneal, sural, saphenous, and tibial nerve branches. - Protective sensation is diminished as tested with a 5.07 10g [place] bilaterally. MUSCULOSKELETAL EXAM: - No gross deformities - Muscle strength is 5/5 and active motion is pain-free and symmetrical bilaterally - No pain or crepitation with passive range of motion bilaterally to all major pedal joints Labs/Diagnostic Data Labs Test 11/10/24 06:35 11/10/24 04:45 11/09/24 18:05 11/09/24 16:09 Range/Units White Blood Count 14.0 H 4.4-10.8 10^3/uL Red Blood Count 4.48 L 4.5-5.90 10^6/uL Hemoglobin 14.0 13.5-17.5 g/dL Hematocrit 40.6 #L 41.0-53.0 % Mean Corpuscular Volume 90.6 80.0-100.0 fL Mean Corpuscular Hemoglobin 31.2 28.0-32.0 pg Mean Corpuscular Hemoglobin Concent 34.5 32.0-36.0 g/dL Red Cell Distribution Width 13.5 11.8-14.3 % Platelet Count 281 140-450 10^3/uL Mean Platelet Volume 7.7 6.9-10.8 fL Neutrophils (%) (Auto) 84.6 H 37.0-80.0 % Lymphocytes (%) (Auto) 5.9 L 10.0-50.0 % Monocytes (%) (Auto) 8.2 0.0-12.0 % Eosinophils (%) (Auto) 1.1 0.0-7.0 % Basophils (%) (Auto) 0.2 0.0-2.0 % Neutrophils # (Auto) 11.9 H 1.6-8.6 10 ^3/uL Lymphocytes # (Auto) 0.8 0.4-5.4 10 ^3/uL Monocytes # (Auto) 1.1 0-1.3 10 ^3/uL Eosinophils # (Auto) 0.1 0-0.8 10 ^3/uL Basophils # (Auto) 0 0-0.2 10 ^3/uL Nucleated Red Blood Cells 0.1 % Prothrombin Time 11.5 9.3-11.8 sec Prothrombin Time INR 1.09 0.9-1.15 Activated Partial Thromboplast Time 32.2 24.5-34.5 SEC Sodium Level 135 L 136-145 mmol/L Potassium Level 4.0 3.5-5.1 mmol/L Chloride Level 103 98-107 mmol/L Carbon Dioxide Level 24 20-31 mmol/L Anion Gap 8 5-15 Blood Urea Nitrogen 14 9-23 mg/dL Creatinine 1.20 0.700-1.30 mg/dL Glomerular Filtration Rate Calc 77 >90 mL/min BUN/Creatinine Ratio 11.7 10.0-20.0 Serum Glucose 155 H 74-106 mg/dL Calcium Level 9.2 8.7-10.4 mg/dL Random Vancomycin Level 22.1 H 5-10 ug/mL POC Glucose 162 H 70-106 mg/dl Lactic Acid Level 1.3 0.4-2.0 mmol/L Erythrocyte Sedimentation Rate 35 H 0-20 mm/hr Total Bilirubin 1.4 H 0.2-1.0 mg/dL Aspartate Amino Transferase (AST) 30 13-40 U/L Alanine Aminotransferase (ALT) 19 7-40 U/L Alkaline Phosphatase 84 46-116 U/L C-Reactive Protein High Sensitivity 14.19 H <1.0 mg/dL Total Protein 8.4 H 5.7-8.2 g/dL Albumin 4.8 3.2-4.8 g/dL Problems(with codes): (1) Leukocytosis (2) Elevated lactic acid level (3) Sepsis (4) DM type 2 with diabetic foot ulcer (5) Acute osteomyelitis of toe of left foot Plan/Recommendation ASSESSMENT: Patient is a 44 year old seen on the floor for a worsening ulcer PLAN: - The patients chart was reviewed, clinical findings were discussed with the patient, the etiologies of the conditions were discussed in detail, and a treatment plan was agreed to at this time, with both oral and written instructions provided. - reviewed advanced imaging - discussed plan is to perform an incision and drainage - patient has been NPO since midnight - take him to the OR today - we will get cultures in the OR - can weightbear as tolerated in postoperative shoe - patient will need 6 weeks IV antibiotics we will get cultures today All questions were answered and concerns addressed to the patient's satisfaction. The patient was given the phone number to the clinic and was told how to make contact with the clinic should any concerns or questions arise. Patient understands that if any questions or concerns arise prior to the next appointment, we should be contacted immediately. FOLLOW-UP: Continue to follow while inpatient Plan discussed with: Patient Date of Service: Nov 10, 2024 Billing Provider: DANTE BRICE DPM Common Visit Codes: CONSULT ONLY Consultation Codes: [id number] CONSULT <80MIN DANTE BRICE DPM Nov 10, 2024 10:06
[2024-11-10 10:35] VITALS: PULSE 84; RESP 13; O2SAT 99
--- NOTE | 2024-11-10 10:45 | DVHOP2 ---
Operative Report - 2 Report Details Date: 11/10/24 Preop Diagnosis: 1. Left foot osteomyelitis 2. Left foot abscess 3. Left foot cellulitis 4. Left foot chronic ulcer Postop Diagnosis: Same preoop Surgeon: Dante Brice MD Anesthesiologist: See anesthesia Anesthesia: Mac Consent: The patient was informed of the risks and benefits of the procedure. These include but are not limited to complications of anesthesia, postoperative infection, incomplete relief of symptoms, recurrence of symptoms, damage to blood vessels, nerves and tendons, deep venous thrombosis, pulmonary embolism and possible need for repeat surgery in the future. Complications: None Estimated Blood Loss: Minimal Fluids: See anesthesia Findings: Consistent with the diagnosis Indications for Surgery: Worsening left foot wound Name of Procedure Performed 1. Left foot I&D to bone (81688) Procedure Details Procedure Details: PRE-PROCEDURE INFORMATION: In the pre-op holding area, the extremity to be operated on was clearly marked and the patient verified correct laterality of the marking. The patient was transferred to the OR table and placed in a supine position. A timeout was performed in which identification of the correct patient, procedure, location, and materials was done. The left foot and leg were prepped and draped in normal sterile fashion. DESCRIPTION OF PROCEDURE: Attention was directed to the left where area of fluctuance was noted. An incision was made over this area and was deepened through blunt dissection. The incision was deepened to the level of abscess and bone. Care was taken to the dissection to avoid any neurovascular and tendinous structures. The incision was deepened to the bone, and the abscess appeared to be purulent fluid consistent with pus. The cortices of the bone was then removed with Ceferino an all necrotic tissue. After the abscess was drained, the area was irrigated with 3 L normal saline using cysto tubing. Deep cultures were then obtained from the wound. The area was then inspected and any areas of tracking, especially along the tendons were also drained. The wound was packed with Betadine-soaked gauze and we will need to be closed at a later date. All surgical wounds were irrigated copiously with saline and closed in layers with the aforementioned suture material. A dry sterile dressing was placed on the surgical extremity. The patient was placed in a post op shoe. POSTOPERATIVE INFORMATION: The patient tolerated the above noted procedure and anesthesia well and was transferred to the PACU with vital signs stable, and vascular status intact with capillary refill intact to all digits. Patient will return to the floor. Patient will need PICC line and 6 weeks of IV abx. Condition Good Disposition Still a Patient DANTE BRICE DPM Nov 10, 2024 10:45
[2024-11-10 12:22] VITALS: BP 148/95; PULSE 108; RESP 16; TEMP 98.2; O2SAT 97
[2024-11-10 12:30] VITALS: PULSE 100; RESP 18; O2SAT 97
[2024-11-10] MEDS: HYDROcodone-ACET 5/325MG TAB PO PRN (12:44)
[2024-11-10] MEDS ORDERED: VANCOMYCIN 1.25GM/250ML 250 ML IV SCH ×2 (17:00→20:00)
[2024-11-10 17:37] VITALS: BP 120/73; PULSE 100; RESP 17; TEMP 98.3; O2SAT 94
--- NOTE | 2024-11-10 18:12 | DVHPN2 ---
Subjective 11/10-patient admitted for left foot osteomyelitis he was status post I&D on antibiotics IV. His left foot is wrapped in gauze status post I&D and dressing is CDI. Patient requiring pain control we will continue to monitor. Pending wound culture to guide IV antibiotic therapy. Podiatry recommends IV antibiotics 6 weeks. We will wait for cultures to deescalate to final a ntibiotic. Reviewed: H&P Changes from previous H/P or p: No Changes General: Per HPI Objective Vitals Vital Signs Date Time Temp Pulse Resp B/P (MAP) Pulse Ox O2 Delivery O2 Flow Rate FiO2 11/10/24 17:37 98.3 100 17 120/73 (89) 94 98.3 11/10/24 12:30 Room Air* 0 21 Intake/Output Intake and Output 11/10/24 07:00 Intake Total 125 ml Balance 125 ml IV Total 125 ml Exam GEN: Healthy appearing, well-developed, NAD. HEENT: NC/AT; MMM. CV: RRR, no m/r/g. LUNGS: CTAB, no w/r/c. ABD: Soft, NT/ND, NBS, no masses or organomegaly. EXT: Left foot covered in gauze and dressing CDI, pulses palpable NEURO: Ambulating with no limitations. No focal deficits. Medications Current Medications Medications Dose Ordered Sig/Quyen Route Start Time Stop Time Status Last Admin Dose Admin Piperacillin Sod/ Tazobactam Sod 100 ml @ 25 mls/hr Q6H IV 11/09/24 22:00 11/10/24 20:30 11/10/24 16:20 25 MLS/HR Vancomycin HCl 0 ml @ 0 mls/hr UD IV 11/09/24 19:45 Diagnostic Test (Pha) 1 strip Q6HR 11/10/24 00:00 11/10/24 17:14 1 STRIP Insulin Human Regular Q6HR SC 11/10/24 00:00 Dextrose 50 ml UD PRN IV 11/09/24 19:45 Acetaminophen/ Hydrocodone Bitart 1 tab Q4HP PRN PO 11/09/24 19:45 11/10/24 12:44 1 TAB Ondansetron HCl 4 mg Q4HP PRN IV 11/09/24 19:45 Acetaminophen 650 mg Q6HP PRN PO 11/09/24 19:45 Vancomycin HCl 250 ml @ 200 mls/hr Q8H IV 11/10/24 20:00 Piperacillin Sod/ Tazobactam Sod 100 ml @ 25 mls/hr Q8H IV 11/10/24 22:00 Laboratory Results Laboratory Tests 11/10/24 06:35 11/10/24 14:44 Chemistry Test 11/10/24 06:35 Calcium Level 9.2 mg/dL (8.7-10.4) Coagulation Test 11/10/24 06:35 Prothrombin Time 11.5 sec (9.3-11.8) Prothrombin Time INR 1.09 (0.9-1.15) Activated Partial Thromboplast Time 32.2 SEC (24.5-34.5) Labs and/or images reviewed: Labs reviewed by me, Image(s) reviewed by me Assessment/Plan Assessment/Plan 11/10-patient admitted for left foot osteomyelitis he was status post I&D on antibiotics IV. His left foot is wrapped in gauze status post I&D and dressing is CDI. Patient requiring pain control we will continue to monitor. Pending wound culture to guide IV antibiotic therapy. Podiatry recommends IV antibiotics 6 weeks. We will wait for cultures to deescalate to final a ntibiotic. Left foot osteomyelitis Left foot abscess Left foot cellulitis Leukocytosis Neutrophilia Lactic acidosis, resolved Hyperbilirubinemia, mild Anion gap Acidosis Type 2 diabetes mellitus History of bipolar disorder History of schizophrenia -Status post podiatry left foot I and D on 11/10 -IV antibiotics zosyn doxycycline (prior vancomycin), p.r.n. analgesia including IV Diabetic diet DVT prophylaxis-Lovenox GI prophylaxis tolerating diet Med surge Full code Plan discussed with: Patient Date of Service: Nov 10, 2024 Billing Provider: AUBRIE JAUREGUI MD Common Visit Codes: [id number] INP/OBS CARE(HIGH) AUBRIE JAUREGUI MD Nov 10, 2024 18:12
[2024-11-10 19:04] LABS: Urine Bacteria None Seen /hpf (None Seen)
[2024-11-10 19:13] LABS: Urine Blood Negative /uL (Negative); Urine Clarity Clear (Clear); Urine Color Yellow (Yellow); Urine Mucus FEW (None Seen); Urine Protein, UAD TRACE (Negative); Urine Squamous Epithelial Cell None Seen /hpf (<5); Urine Urobilinogen Normal (Negative); Urine WBC 1 /HPF (0-3); Urine pH 5.5 (5.0-9.0)
[2024-11-10 20:00] VITALS: PULSE 88; RESP 16
[2024-11-10] MEDS: DOXYCYCLINE 100MG/100ML 100 ML IV SCH (20:01)
[2024-11-10 21:00] VITALS: BP 122/75; PULSE 103; RESP 18; TEMP 100; O2SAT 96
[2024-11-10] MEDS: PIPERACILLIN-TAZO 4.5GM 100 ML IV SCH (22:00)
[2024-11-11 05:00] VITALS: BP 113/62; PULSE 87; RESP 88; TEMP 97.9; O2SAT 90
[2024-11-11 05:41] LABS: Basophils # (auto) 0.1 10 ^3/uL (0-0.2); Basophils % (auto) 0.6 % (0.0-2.0); Eosinophils # (auto) 0.2 10 ^3/uL (0-0.8); Eosinophils % (auto) 1.5 % (0.0-7.0); Hematocrit 39.1 % (41.0-53.0); Hemoglobin 13.3 g/dL (13.5-17.5); Lymphocytes # (auto) 1.2 10 ^3/uL (0.4-5.4); Lymphocytes % (auto) 12.1 % (10.0-50.0); Mean Corpuscular Hemoglobin 30.9 pg (28.0-32.0); Mean Corpuscular Volume 90.9 fL (80.0-100.0); Monocytes # (auto) 0.9 10 ^3/uL (0-1.3); Monocytes % (auto) 8.9 % (0.0-12.0); Neutrophils # (auto) 7.9 10 ^3/uL (1.6-8.6); Neutrophils % (auto) 76.9 % (37.0-80.0); Nucleated Red Blood Cells % 0.1 %; Platelet Count (auto) 279 10^3/uL (140-450); Red Blood Cells 4.29 10^6/uL (4.5-5.90); Red Cell Distribution Width 13.1 % (11.8-14.3); White Blood Cell 10.3 10^3/uL (4.4-10.8)
[2024-11-11 05:48] LABS: Alanine Aminotransferase 25 U/L (7-40); Alkaline Phosphatase 71 U/L (46-116); Anion Gap 5 (5-15); Aspartate Aminotransferase 23 U/L (13-40); BUN/Creatinine Ratio 10.2 (10.0-20.0); Blood Urea Nitrogen 10 mg/dL (9-23); Carbon Dioxide 25 mmol/L (20-31); Glucose 104 mg/dL (74-106); Potassium 3.6 mmol/L (3.5-5.1); Sodium 137 mmol/L (136-145); Total Protein 7.1 g/dL (5.7-8.2)
[2024-11-11 05:49] LABS: Albumin 3.9 g/dL (3.2-4.8)
[2024-11-11 05:55] LABS: Chloride 107 mmol/L (98-107)
[2024-11-11 08:00] VITALS: PULSE 88; RESP 19; O2SAT 94
[2024-11-11 09:30] VITALS: BP 127/88; PULSE 88; RESP 19; TEMP 97.6; O2SAT 94
[2024-11-11] MEDS: PIPERACILLIN-TAZO 4.5GM 100 ML IV SCH (10:12)
--- NOTE | 2024-11-11 18:10 | DVHDS2 ---
Discharge Summary Date of Admission Nov 09, 2024 at 19:38 Date of Discharge: Nov 11, 2024 Labs/Diagnostic Data: Laboratory Results Test 11/11/24 06:03 11/11/24 05:10 11/10/24 18:40 11/10/24 14:44 POC Glucose 116 mg/dl (70-106) White Blood Count 10.3 10^3/uL (4.4-10.8) Red Blood Count 4.29 10^6/uL (4.5-5.90) Hemoglobin 13.3 g/dL (13.5-17.5) Hematocrit 39.1 % (41.0-53.0) Mean Corpuscular Volume 90.9 fL (80.0-100.0) Mean Corpuscular Hemoglobin 30.9 pg (28.0-32.0) Mean Corpuscular Hemoglobin Concent 34.0 g/dL (32.0-36.0) Red Cell Distribution Width 13.1 % (11.8-14.3) Platelet Count 279 10^3/uL (140-450) Mean Platelet Volume 7.5 fL (6.9-10.8) Neutrophils (%) (Auto) 76.9 % (37.0-80.0) Lymphocytes (%) (Auto) 12.1 % (10.0-50.0) Monocytes (%) (Auto) 8.9 % (0.0-12.0) Eosinophils (%) (Auto) 1.5 % (0.0-7.0) Basophils (%) (Auto) 0.6 % (0.0-2.0) Neutrophils # (Auto) 7.9 10 ^3/uL (1.6-8.6) Lymphocytes # (Auto) 1.2 10 ^3/uL (0.4-5.4) Monocytes # (Auto) 0.9 10 ^3/uL (0-1.3) Eosinophils # (Auto) 0.2 10 ^3/uL (0-0.8) Basophils # (Auto) 0.1 10 ^3/uL (0-0.2) Nucleated Red Blood Cells 0.1 % Sodium Level 137 mmol/L (136-145) Potassium Level 3.6 mmol/L (3.5-5.1) Chloride Level 107 mmol/L (98-107) Carbon Dioxide Level 25 mmol/L (20-31) Anion Gap 5 (5-15) Blood Urea Nitrogen 10 mg/dL (9-23) Creatinine 0.98 mg/dL (0.700-1.30) Glomerular Filtration Rate Calc 99 mL/min (>90) BUN/Creatinine Ratio 10.2 (10.0-20.0) Serum Glucose 104 mg/dL (74-106) Calcium Level 9.0 mg/dL (8.7-10.4) Total Bilirubin 1.0 mg/dL (0.2-1.0) Aspartate Amino Transferase (AST) 23 U/L (13-40) Alanine Aminotransferase (ALT) 25 U/L (7-40) Alkaline Phosphatase 71 U/L (46-116) Total Protein 7.1 g/dL (5.7-8.2) Albumin 3.9 g/dL (3.2-4.8) Urine Color Yellow (Yellow) Urine Clarity Clear (Clear) Urine pH 5.5 (5.0-9.0) Urine Specific Delta 1.020 (1.001-1.035) Urine Protein Trace (Negative) Urine Ketones Negative (Negative) Urine Blood Negative /uL (Negative) Urine Nitrite Negative (Negative) Urine Bilirubin Negative (Negative) Urine Urobilinogen Normal mg/dL (Negative) Urine Leukocyte Esterase Negative /uL (Negative) Urine RBC <1 /hpf (0 - 3) Urine Microscopic WBC 1 /HPF (0-3) Urine Squamous Epithelial Cells None seen /hpf (<5) Urine Bacteria None seen /hpf (None Seen) Urine Mucus Few (None Seen) Urine Glucose Normal mg/dL (Normal) Random Vancomycin Level 8.0 ug/mL (5-10) Test 11/10/24 06:35 11/09/24 18:05 11/09/24 16:09 Prothrombin Time 11.5 sec (9.3-11.8) Prothrombin Time INR 1.09 (0.9-1.15) Activated Partial Thromboplast Time 32.2 SEC (24.5-34.5) Lactic Acid Level 1.3 mmol/L (0.4-2.0) Erythrocyte Sedimentation Rate 35 mm/hr (0-20) C-Reactive Protein High Sensitivity 14.19 mg/dL (<1.0) Other Laboratory Tests 11/11/24 05:10 Brief Hx & Hospital Course: HPI: 44-year-old male presents for evaluation of left foot infection. Patient reports being seen by his flue dust laborer weekly. Today he was seen in noticed a wound to the plantar of his left foot becoming worse so he advised him to present for possible surgery tomorrow. Patient reports over the past three days he has noticed discharge from the wound his and pain to the left foot. Summary: patient admitted for left foot osteomyelitis he was status post I&D on antibiotics IV. His left foot is wrapped in gauze status post I&D and dressing is CDI. Patient requiring pain control we will continue to monitor. Pending wound culture to guide IV antibiotic therapy. Patient was started on empiric antibiotics vanc Zosyn and then Zosyn and doxycycline. Podiatry recommends IV antibiotics 6 weeks. We will wait for cultures to deescalate to final a ntibiotic. PICC line ordered but patient declines. Patient has severe anxiety and declining any anxiolytics as well. Patient wants to leave AMA he was informed of need for IV antibiotics and/or oral antibiotics. Patient unable to wait for appropriate discharge and leaves AMA despite knowing risks. Condition at Discharge: Undetermined Final Diagnosis/Problems List Left foot osteomyelitis Left foot abscess Left foot cellulitis Leukocytosis Neutrophilia Lactic acidosis, resolved Hyperbilirubinemia, mild Anion gap Acidosis Type 2 diabetes mellitus History of bipolar disorder History of schizophrenia Discharge Disposition: AMA Discharge Statement: "Patient was advised to return to the ER or call 911 if any headaches, dizziness, shortness of breath, chest pain, abdominal pain, bleeding, fevers, or worsening of medical condition. Patient was counseled about treatment plan, medications, possible side effects, patientverbalized understanding. All questions were answered to the best of my ability. This discharge took greater then 30 minutes in planning, reviewing documentation, counseling the patient, and discussing with other team members." Date of Service: Nov 11, 2024 Billing Provider: AUBRIE JAUREGUI MD Common Visit Codes: NOT BILLABLE AUBRIE JAUREGUI MD Nov 11, 2024 18:10
== END 2024-11-11 11:35 | disposition left against medical advice (07) | DRG 872 ==
LOC: ER 15:33 → OVERFLOW 19:38 → CENTRAL 11-10 12:22
PROVIDERS: ADMIT Student in an Organized Health Care Education/Training Program; ATTEND Student in an Organized Health Care Education/Training Program
PROC: 0Y9N0ZZ Drainage of Left Foot, Open Approach (ICD-10-PCS; principal; 2024-11-10 10:12)
DX: A41.9 Sepsis, unspecified organism (principal); M86.172 Other acute osteomyelitis, left ankle and foot; L03.116 Cellulitis of left lower limb; E87.20 Acidosis, unspecified; L02.612 Cutaneous abscess of left foot; Z53.29 Procedure and treatment not carried out because of patient's decision for other reasons; L97.509 Non-pressure chronic ulcer of other part of unspecified foot with unspecified severity; D72.0 Genetic anomalies of leukocytes; E11.621 Type 2 diabetes mellitus with foot ulcer; E80.6 Other disorders of bilirubin metabolism; F31.9 Bipolar disorder, unspecified; F20.9 Schizophrenia, unspecified; I10 Essential (primary) hypertension; L97.529 Non-pressure chronic ulcer of other part of left foot with unspecified severity; F41.9 Anxiety disorder, unspecified; Z90.49 Acquired absence of other specified parts of digestive tract; Z79.899 Other long term (current) drug therapy; E11.69 Type 2 diabetes mellitus with other specified complication
CPT/HCPCS: 36415; 73700; 80048; 80053; 80202; 81001; 82565; 82962; 83605; 85025; 85610; 85652; 85730; 86141; 86850; 86900; 86901; 87040; 87070; 87075; 87077; 87186; 87205; 96365; 96375; G0378; J1100; J1815; J1885; J2250; J2405; J2543; J2704